=== PATIENT | male | born 1970 | race American Indian/Alaskan Native ===

== ENCOUNTER 2017-09-12 11:29 | Emergency (ER) | payer OTHER ==
--- NOTE | 2017-09-12 17:36 | Emergency Department Report ---
- General Chief Complaint: Upper Respiratory Infection Stated Complaint: FLU LIKE SYMPTOMS Source: patient Mode of arrival: Ambulatory Limitations: No Limitations - History of Present Illness Initial Comments: 47 y/o M presents with a productive cough, congestion, chills, body aches, sinus headache, and itchy/watery/ red eyes for the past 3-5 days. Pt states that this feels similar to how he usually feels when he is coming down with a cold. Pt has tried OTC Mucinex and eye drops for the symptoms at this time. 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 He denies any eye crusting/eye pain/hx of cataracts/glaucoma- no change in vision 20/25, no chest pain, SOB, nausea, or vomiting at this time. MD Complaint: cough, rhinorrhea, nasal congestion, sinus pain -: days(s) (3-5) Severity: moderate Severity scale (0 -10): 5 Consistency: constant Improves With: nothing Worsens With: nothing Associated Symptoms: fever, chills, myalgias, headache, rhinorrhea, nasal congestion, cough. denies: stiff neck, chest pain, shortness of breath, abdominal pain, nausea, vomiting, diarrhea, rash, confusion, right sweats, weight loss, epistaxis, hoarseness, ear pain - Related Data Previous Rx's Medication Instructions Recorded Last Taken Type Amoxicillin [Trimox CAP] 500 mg PO Q8H #30 capsule 10/15/14 Unknown Rx Gentamicin 0.3% Ophth Soln 2 drops OP QID #5 ml 10/15/14 Unknown Rx predniSONE [Deltasone] 20 mg PO TID #15 tab 10/15/14 Unknown Rx Amoxicillin/Potassium Clav 1 each PO BID #20 tablet 09/12/17 Unknown Rx [Augmentin 875-125 Tablet] Fluticasone [Flonase] 1 spray NS QDAY PRN #1 bottle 09/12/17 Unknown Rx predniSONE [Deltasone] 20 mg PO QDAY #5 tab 09/12/17 Unknown Rx Allergies Allergy/AdvReac Type Severity Reaction Status Date / Time No Known Allergies Allergy Unverified 10/15/14 12:56 ED Review of Systems ROS: Stated complaint: FLU LIKE SYMPTOMS Other details as noted in HPI Constitutional: chills, fever Eyes: other (reports to a red R eye, itching and watery). denies: eye pain, eye discharge, vision change ENT: congestion. denies: ear pain, throat pain Respiratory: cough. denies: shortness of breath, wheezing Cardiovascular: denies: chest pain, palpitations Gastrointestinal: denies: abdominal pain, nausea, diarrhea Genitourinary: denies: urgency, dysuria Musculoskeletal: denies: back pain, joint swelling, arthralgia Skin: denies: rash, lesions Neurological: denies: headache, weakness, paresthesias Psychiatric: denies: anxiety, depression Hematological/Lymphatic: denies: easy bleeding, easy bruising ED Past Medical Hx - Past Medical History Previous Medical History?: Yes Hx Hypertension: Yes - Surgical History Past Surgical History?: No - Social History Smoking Status: Current Every Day Smoker Substance Use Type: Alcohol, Marijuana, Prescribed - Medications Home Medications: Home Medications Medication Instructions Recorded Confirmed Last Taken Type Amoxicillin [Trimox CAP] 500 mg PO Q8H #30 capsule 10/15/14 Unknown Rx Gentamicin 0.3% Ophth Soln 2 drops OP QID #5 ml 10/15/14 Unknown Rx predniSONE [Deltasone] 20 mg PO TID #15 tab 10/15/14 Unknown Rx Amoxicillin/Potassium Clav 1 each PO BID #20 tablet 09/12/17 Unknown Rx [Augmentin 875-125 Tablet] Fluticasone [Flonase] 1 spray NS QDAY PRN #1 bottle 09/12/17 Unknown Rx predniSONE [Deltasone] 20 mg PO QDAY #5 tab 09/12/17 Unknown Rx ED Physical Exam - General Limitations: No Limitations General appearance: alert, in no apparent distress - Head Head exam: Present: normocephalic, other (TTP at the maxillary sinus region bilaterally) - Eye Eye exam: Present: PERRL, EOMI, other (there was no injection of the conjunctiva on examination today, unremarkable eye exam, visual acuity 20/25 R, L, and both together (no eye redness, swelling, oozing, draianage or crusting of the eye noted)). Absent: conjunctival injection, periorbital swelling, periorbital tenderness Pupils: Present: normal accommodation - ENT ENT exam: Present: other (PND noted at the posterior pharynx, b/l clear nasal congestion noted on examination, no pharnygitits or evidence of abscess) - Neck Neck exam: Present: full ROM, other (no signs of mengitis, able to flex and extend neckw ith no pain or difficulty) - Respiratory Respiratory exam: Present: normal lung sounds bilaterally. Absent: respiratory distress - Cardiovascular Cardiovascular Exam: Present: regular rate, normal rhythm. Absent: systolic murmur, diastolic murmur, rubs, gallop - GI/Abdominal GI/Abdominal exam: Present: soft, normal bowel sounds - Extremities Exam Extremities exam: Present: normal inspection - Back Exam Back exam: Present: normal inspection - Neurological Exam Neurological exam: Present: alert, oriented X3, CN II-XII intact, normal gait - Expanded Neurological Exam Expanded Patient oriented to: Present: person, place, time Speech: Present: fluid speech Cranial nerves: EOM's Intact: Normal Best Eye Response ([place]): (4) open spontaneously Best Motor Response ([place]): (6) obeys commands Best Verbal Response ([place]): (5) oriented Leah Total: 15 - Psychiatric Psychiatric exam: Present: normal affect, normal mood - Skin Skin exam: Present: warm, dry, intact, normal color. Absent: rash ED Course Vital Signs 09/12/17 09/12/17 11:43 17:43 Temperature 97.6 F 97.8 F Pulse Rate 75 89 Respiratory 20 18 Rate Blood Pressure 139/97 Blood Pressure 129/91 [Right] O2 Sat by Pulse 98 96 Oximetry ED Medical Decision Making - Radiology Data Radiology results: report reviewed CXR: Frontal and lateral views of the chest obtained. Cardiac silhouette is within normal limits. No focal consolidation or effusion. No pneumothorax. Visualized bony thorax is grossly intact. Impression: no focal consolidation. - Medical Decision Making Rapid strep and flu were negative. CXR-was unremarkable. Pt states that he feels similar to how he feels when he is coming down with a cold. I have treatment him with augmentin, flonase, and oral prednisone for 5 days. Pt denied fluroscien staining/goniometer pressure at this time. Hx seemed consistent with allergy related or a subconjunctival hemorrahge from excessive sneezing. The eye examination was unremarkable at this time, no redness of the eye was noted on examination today. Referral to Opthamology has been provided for patient today. Pt was alert and oriented throughout ED stay, laughing, in no acute respiratory distress, vitals stable at discharge. Critical care attestation.: If time is entered above; I have spent that time in minutes in the direct care of this critically ill patient, excluding procedure time. ED Disposition Clinical Impression: Sinusitis Qualifiers: Sinusitis location: maxillary Chronicity: acute Recurrence: recurrent Qualified Code(s): J01.01 - Acute recurrent maxillary sinusitis Disposition: TO HOME OR SELFCARE Is pt being admited?: No Does the pt Need Aspirin: No Condition: Stable Instructions: Prednisone (By mouth), Amoxicillin/Clavulanate Potassium (By mouth) Additional Instructions: Please complete your full course of antibiotic. Please avoid all anti- inflammatory medications (as motrin, advil, aleve) while on the prednisone. Please follow-up with PCP within 3-5 days. ENT referral provided for you today. Return to the ER immediately if your presenting conditions acutely progress or worsen. Prescriptions: Amoxicillin/Potassium Clav [Augmentin 875-125 Tablet] 1 each PO BID #20 tablet Fluticasone [Flonase] 1 spray NS QDAY PRN #1 bottle PRN Reason: Nasal Congestion predniSONE [Deltasone] 20 mg PO QDAY #5 tab [facility]: [facility] [Outside] - 3-5 Days [facility] [Outside] - 3-5 Days SVETLANA HICKMAN MD [Staff Physician] - 3-5 Days [facility], [Primary Care Provider] - 3-5 Days MARTÍN DUNHAM MD [Staff Physician] - 3-5 Days Forms: Work/School Release Form(ED)
[2017-09-12 17:44] VITALS: BP 129/91
--- NOTE | 2017-09-12 18:31 | XRay Report ---
FINAL REPORT EXAM: XR CHEST ROUTINE 2V HISTORY: productive cough COMPARISON: None available. FINDINGS:: Frontal and lateral views of the chest obtained. Cardiac silhouette is within normal limits. No focal consolidation or effusion. No pneumothorax. Visualized bony thorax is grossly intact. IMPRESSION:: No focal consolidation.
== END 2017-09-12 18:48 | disposition home or self-care (01) ==
LOC: ED 11:29
DX: J01.01 Acute recurrent maxillary sinusitis (principal); F17.200 Nicotine dependence, unspecified, uncomplicated; I10 Essential (primary) hypertension
CPT/HCPCS: 71046; 87116; 87400; 87430; 99283

== ENCOUNTER 2018-04-18 20:47 | Emergency (ER) | payer SELFPAY ==
[2018-04-18 21:37] LABS: Hematocrit 35.8 % (35.5-45.6); Hemoglobin 11.8 gm/dl (11.8-15.2); Mean Corpuscular HGB Conc 33 % (32-34); Mean Corpuscular Hemoglobin 29 pg (28-32); Mean Corpuscular Volume 87 fl (84-94); Platelet Count 271 K/mm3 (140-440); Red Blood Count 4.13 M/mm3 (3.65-5.03); Red Cell Distribution Width 14.4 % (13.2-15.2)
[2018-04-18 21:53] LABS: Bilirubin,Urine NEG (Negative); Blood,Urine NEG (Negative); Color,Urine Yellow (Yellow); Mucus,Urine 1+ /HPF; WBC,Urine < 1.0 /HPF (0.0-6.0)
[2018-04-18 21:54] LABS: Alanine Aminotransferase 41 units/L (7-56); Albumin 4.1 g/dL (3.9-5); BUN/Creatinine Ratio 12; Blood Urea Nitrogen 13 mg/dL (9-20); Calcium 8.7 mg/dL (8.4-10.2); Hemolysis Index 0
[2018-04-19] MEDS ORDERED: NACL 0.9% 1000 ML 1,000 ML IV ONE (01:19)
[2018-04-19] MEDS ORDERED: NORCO 10/325 PO ONE (01:35)
--- NOTE | 2018-04-19 01:38 | Emergency Department Report ---
ED General Adult HPI - General Chief complaint: Pain General Stated complaint: BILATERAL LEG/FOOT PAIN Time Seen by Provider: 04/19/18 01:17 Source: patient Mode of arrival: Ambulatory Limitations: No Limitations - History of Present Illness Initial comments: 47-year-old man complains of leg ache and backache, with symptoms present for approximately a week, with significant exacerbation today. 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 Discomfort has built up steadily, and is noticed over the past day or so that his urine has become steadily darker. He also has a headache, and is concerned about his blood pressure, and he has a history of hypertension, which she treats with amlodipine and hydrochlorothiazide, as well as clonidine. He denies any neck ache, any focal neurologic symptoms, no chest pain or shortness of breath, no abdominal pain, no nausea or vomiting. Offered and legs seems to be centered about both calves , and some discomfort in the posterior thighs, as well as buttock discomfort. Some aggravation with movement, discomfort is moderate, generally 6-7 out of 10 and aching mild throbbing. The throbbing, generalized, worse in the frontal area, not associated with any focal neurologic symptoms. Severity scale (0 -10): 7 - Related Data Previous Rx's Medication Instructions Recorded Last Taken Type Amoxicillin [Trimox CAP] 500 mg PO Q8H #30 capsule 10/15/14 Unknown Rx Gentamicin 0.3% Ophth Soln 2 drops OP QID #5 ml 10/15/14 Unknown Rx predniSONE [Deltasone] 20 mg PO TID #15 tab 10/15/14 Unknown Rx Amoxicillin/Potassium Clav 1 each PO BID #20 tablet 09/12/17 Unknown Rx [Augmentin 875-125 Tablet] Fluticasone [Flonase] 1 spray NS QDAY PRN #1 bottle 09/12/17 Unknown Rx predniSONE [Deltasone] 20 mg PO QDAY #5 tab 09/12/17 Unknown Rx HYDROcodone/ACETAMINOPHEN [[place] 1 each PO Q6H #20 tablet 04/19/18 Unknown Rx 5-325 Tablet] Allergies Allergy/AdvReac Type Severity Reaction Status Date / Time No Known Allergies Allergy Unverified 10/15/14 12:56 ED Review of Systems ROS: Stated complaint: BILATERAL LEG/FOOT PAIN Other details as noted in HPI Constitutional: chills, malaise, weakness. denies: fever Eyes: denies: vision change ENT: denies: throat pain Respiratory: denies: cough, shortness of breath, wheezing Cardiovascular: denies: chest pain, palpitations Endocrine: no symptoms reported Gastrointestinal: denies: abdominal pain, nausea, diarrhea Genitourinary: other (urine discolored past day). denies: urgency, dysuria Musculoskeletal: back pain, arthralgia, myalgia, other (chronic nodular cyst right proximal forearm). denies: joint swelling Neurological: headache. denies: weakness, numbness, paresthesias, confusion, vertigo Psychiatric: denies: anxiety, depression Hematological/Lymphatic: denies: easy bleeding, easy bruising ED Past Medical Hx - Past Medical History Hx Hypertension: Yes - Social History Smoking Status: Current Some Day Smoker Substance Use Type: None - Medications Home Medications: Home Medications Medication Instructions Recorded Confirmed Last Taken Type Amoxicillin [Trimox CAP] 500 mg PO Q8H #30 capsule 10/15/14 Unknown Rx Gentamicin 0.3% Ophth Soln 2 drops OP QID #5 ml 10/15/14 Unknown Rx predniSONE [Deltasone] 20 mg PO TID #15 tab 10/15/14 Unknown Rx Amoxicillin/Potassium Clav 1 each PO BID #20 tablet 09/12/17 Unknown Rx [Augmentin 875-125 Tablet] Fluticasone [Flonase] 1 spray NS QDAY PRN #1 bottle 09/12/17 Unknown Rx predniSONE [Deltasone] 20 mg PO QDAY #5 tab 09/12/17 Unknown Rx HYDROcodone/ACETAMINOPHEN [[place] 1 each PO Q6H #20 tablet 04/19/18 Unknown Rx 5-325 Tablet] ED Physical Exam - General Limitations: No Limitations General appearance: alert, in no apparent distress - Head Head exam: Present: atraumatic, normocephalic - Eye Eye exam: Present: PERRL, EOMI. Absent: scleral icterus - ENT ENT exam: Present: normal exam, mucous membranes moist - Neck Neck exam: Present: normal inspection. Absent: tenderness - Respiratory Respiratory exam: Present: normal lung sounds bilaterally - Cardiovascular Cardiovascular Exam: Present: regular rate, normal heart sounds - GI/Abdominal GI/Abdominal exam: Present: soft, normal bowel sounds. Absent: tenderness, guarding - Rectal Rectal exam: Present: deferred - Extremities Exam Extremities exam: Present: normal inspection, full ROM, tenderness (mild nonspecific, nonlocalized muscular aches on palpation directly, no edema or swelling, no tenseness). Absent: pedal edema, calf tenderness (no focal or specific calf tenderness out of proportion to other muscular aches) - Back Exam Back exam: Present: normal inspection, full ROM, tenderness (mild bilateral paraspinal tenderness, generally, along the lumbar and thoracic area, not particularly exacerbated by movement). Absent: muscle spasm, vertebral tenderness - Neurological Exam Neurological exam: Present: alert, oriented X3, CN II-XII intact, reflexes normal. Absent: motor sensory deficit - Psychiatric Psychiatric exam: Present: normal affect, normal mood - Skin Skin exam: Present: warm, dry, intact, normal color. Absent: erythema ED Course Vital Signs 04/18/18 04/19/18 04/19/18 20:52 00:24 00:25 Temperature 38.1 C H 37.7 C H Pulse Rate 102 H 95 H Respiratory 18 16 Rate Blood Pressure 180/105 175/87 Blood Pressure 175/87 [Left] O2 Sat by Pulse 97 95 96 Oximetry 04/19/18 04/19/18 04/19/18 00:30 01:00 01:30 Temperature Pulse Rate Respiratory Rate Blood Pressure 163/87 158/92 155/84 Blood Pressure [Left] O2 Sat by Pulse 95 93 91 Oximetry 04/19/18 04/19/18 04/19/18 01:40 02:00 02:20 Temperature 37.2 C Pulse Rate 74 Respiratory 16 16 Rate Blood Pressure 145/84 Blood Pressure 145/84 [Left] O2 Sat by Pulse 92 95 Oximetry 04/19/18 04/19/18 04/19/18 02:23 03:54 04:31 Temperature 36.9 C Pulse Rate 79 79 Respiratory 16 16 14 Rate Blood Pressure Blood Pressure 149/90 142/92 [Left] O2 Sat by Pulse 94 94 Oximetry - Reevaluation(s) Reevaluation #1: 04/19/18 05:27 Patient resting comfortably at time of recheck, informed of results of declining CK levels, declines any additional symptoms, still has mild muscular discomfort, and only concern is relief of discomfort. Agrees with plan to rest , will follow with physician, and he gets routine antihypertensive medication from a physician in [place]. Repeat BP 152/67. 04/19/18 05:33 ED Medical Decision Making - Lab Data Result diagrams: 04/18/18 21:10 04/18/18 21:10 - Medical Decision Making Patient has had an episode of heat exhaustion, with mild rhabdomyolysis, but is clinically stable, and CK levels although high, are not dangerously so, and repeat has climbed, and urinalysis is normal with no evidence of kidney injury. He is stable for discharge home, will be treated symptomatically, expressed emphasis on rehydration, avoidance of significant exertion, and recheck on 3 or 4 days by primary care physician before returning home. - Differential Diagnosis heat stroke, heat exhaustion, rhabdomyolysis Critical Care Time: No Critical care attestation.: If time is entered above; I have spent that time in minutes in the direct care of this critically ill patient, excluding procedure time. ED Disposition Clinical Impression: Exertional rhabdomyolysis Heat exhaustion Qualifiers: Encounter type: initial encounter Qualified Code(s): T67.5XXA - Heat exhaustion , unspecified, initial encounter Disposition: DC- TO HOME OR SELFCARE Is pt being admited?: No Does the pt Need Aspirin: No Condition: Stable Instructions: Rhabdomyolysis (ED), Heat Exhaustion (ED), Dehydration (ED) Additional Instructions: We are prescribing [place] for residual discomfort in the muscles as they are healing. He can take one tablet every 4-6 hours as needed for muscle soreness. Muscles will cover on their own, but you must avoid exertion until you have been pain-free for several days, and can move without causing discomfort. If you begin exerting yourself too soon, muscles can become sore again, damage can recur, which can cause serious kidney injury if it becomes worse. Drink plenty of fluids while you're recovering. He may eat normally, with no particular restrictions. Continue your blood Pressure medicines as before. Have recheck by your doctor in 3 or 4 days, to assess how you are recovering, before you plan to return to work. Rehydrate with electrolyte which fluids while you are back at work, which is exertional, and in the outdoors during the summer heat. It's also beneficial to take rests on a regular basis, and to cool down, either in an air- conditioned building, or apply cool cloths or baths. Return to emergency department for repeat examination if he have any recurrent symptoms. Prescriptions: HYDROcodone/ACETAMINOPHEN [[place] 5-325 Tablet] 1 each PO Q6H #20 tablet Referrals: PRIMARY CARE, [Primary Care Provider] - 3-5 Days Forms: Work/School Release Form(ED) Time of Disposition: 05:33
--- NOTE | 2018-04-19 02:16 | XRay Report ---
FINAL REPORT EXAM: XR CHEST 1V AP HISTORY: fever COMPARISON: September 12, 2017 FINDINGS: Frontal view(s) of the chest obtained. Stable borderline cardiac enlargement. No gross consolidation or effusion. No pneumothorax. IMPRESSION: No gross focal consolidation.
[2018-04-19 04:31] VITALS: BP 142/92
== END 2018-04-19 05:54 | disposition home or self-care (01) ==
LOC: ED 20:47
DX: T67.5XXA Heat exhaustion, unspecified, initial encounter (principal); M62.82 Rhabdomyolysis; I10 Essential (primary) hypertension; F17.200 Nicotine dependence, unspecified, uncomplicated; X30.XXXA Exposure to excessive natural heat, initial encounter; Y93.89 Activity, other specified; Y92.89 Other specified places as the place of occurrence of the external cause; Y99.8 Other external cause status
CPT/HCPCS: 36415; 71045; 80053; 81001; 82140; 82550; 82962; 83735; 85027; 99284; J7030; 96360

== ENCOUNTER 2018-10-09 18:22 | Emergency (ER) | payer SELFPAY ==
[2018-10-09 20:35] LABS: Bilirubin,Urine NEG (Negative); Blood,Urine LG (Negative); Color,Urine Yellow (Yellow); Mucus,Urine FEW /HPF; Protein,Urine <15 mg/dL mg/dL (Negative); Urobilinogen,Urine < 2.0 mg/dL (<2.0)
--- NOTE | 2018-10-09 21:56 | Emergency Department Report ---
ED Male HPI - General Chief complaint: Urogenital-Male Stated complaint: URINE TRACK BURNING Time Seen by Provider: 10/09/18 20:38 Source: patient Mode of arrival: Ambulatory Limitations: No Limitations - History of Present Illness Initial comments: This is a 48-year-old male here report burning with urination since Thursday on and off. He denies any penile discharge or bleeding. Denies any abdominal or back pain. Denies any fever or chills. No mention of STD concerns. MD Complaint: dysuria Onset/Timin -: days(s) Radiation: none Severity scale (0 -10): 0 (no pain today per patient) dysuria. denies: discharge, swelling, mass, rash, urinary retention, blood in urine, fever, nausea/vomiting, incontinence - Related Data Sexually active: Yes Previous Rx's Medication Instructions Recorded Last Taken Type Amoxicillin [Trimox CAP] 500 mg PO Q8H #30 capsule 10/15/14 Unknown Rx Gentamicin 0.3% Ophth Soln 2 drops OP QID #5 ml 10/15/14 Unknown Rx predniSONE [Deltasone] 20 mg PO TID #15 tab 10/15/14 Unknown Rx Amoxicillin/Potassium Clav 1 each PO BID #20 tablet 09/12/17 Unknown Rx [Augmentin 875-125 Tablet] Fluticasone [Flonase] 1 spray NS QDAY PRN #1 bottle 09/12/17 Unknown Rx predniSONE [Deltasone] 20 mg PO QDAY #5 tab 09/12/17 Unknown Rx HYDROcodone/ACETAMINOPHEN [[place] 1 each PO Q6H #20 tablet 04/19/18 Unknown Rx 5-325 Tablet] Cyclobenzaprine [Flexeril] 10 mg PO TID PRN #30 tablet 10/02/18 Unknown Rx Menthol/Camphor [[place] 1 applicatio TP QID PRN #1 tube 10/02/18 Unknown Rx Ointment] Naproxen 500 mg PO BID PRN #30 tablet 10/02/18 Unknown Rx Phenazopyridine [Pyridium] 100 mg PO TID PRN #9 tab 10/09/18 Unknown Rx Allergies Allergy/AdvReac Type Severity Reaction Status Date / Time No Known Allergies Allergy Verified 10/09/18 18:25 ED Review of Systems ROS: Stated complaint: URINE TRACK BURNING Other details as noted in HPI Constitutional: denies: chills, fever ENT: denies: throat pain Respiratory: denies: cough, shortness of breath, wheezing Cardiovascular: denies: chest pain, palpitations, edema, syncope Gastrointestinal: denies: abdominal pain, nausea, vomiting Genitourinary: dysuria. denies: frequency, hematuria, discharge, testicular pain, testicular mass Musculoskeletal: denies: back pain, joint swelling, arthralgia, myalgia Skin: denies: lesions Neurological: denies: headache, numbness, paresthesias, confusion, abnormal gait, vertigo ED Past Medical Hx - Past Medical History Previous Medical History?: Yes Hx Hypertension: Yes - Surgical History Past Surgical History?: No - Family History Family history: no significant - Social History Smoking Status: Current Every Day Smoker Substance Use Type: Alcohol - Medications Home Medications: Home Medications Medication Instructions Recorded Confirmed Last Taken Type Amoxicillin [Trimox CAP] 500 mg PO Q8H #30 capsule 10/15/14 Unknown Rx Gentamicin 0.3% Ophth Soln 2 drops OP QID #5 ml 10/15/14 Unknown Rx predniSONE [Deltasone] 20 mg PO TID #15 tab 10/15/14 Unknown Rx Amoxicillin/Potassium Clav 1 each PO BID #20 tablet 09/12/17 Unknown Rx [Augmentin 875-125 Tablet] Fluticasone [Flonase] 1 spray NS QDAY PRN #1 bottle 09/12/17 Unknown Rx predniSONE [Deltasone] 20 mg PO QDAY #5 tab 09/12/17 Unknown Rx HYDROcodone/ACETAMINOPHEN [[place] 1 each PO Q6H #20 tablet 04/19/18 Unknown Rx 5-325 Tablet] Cyclobenzaprine [Flexeril] 10 mg PO TID PRN #30 tablet 10/02/18 Unknown Rx Menthol/Camphor [[place] 1 applicatio TP QID PRN #1 tube 10/02/18 Unknown Rx Ointment] Naproxen 500 mg PO BID PRN #30 tablet 10/02/18 Unknown Rx Phenazopyridine [Pyridium] 100 mg PO TID PRN #9 tab 10/09/18 Unknown Rx ED Physical Exam - General Limitations: No Limitations General appearance: alert, in no apparent distress - Head Head exam: Present: atraumatic, normocephalic, normal inspection - Eye Eye exam: Present: normal appearance - ENT ENT exam: Present: normal exam, normal orophraynx - Neck Neck exam: Present: normal inspection, full ROM. Absent: tenderness, lymphadenopathy - Respiratory Respiratory exam: Present: normal lung sounds bilaterally. Absent: respiratory distress, chest wall tenderness - Cardiovascular Cardiovascular Exam: Present: regular rate, normal rhythm, normal heart sounds - GI/Abdominal GI/Abdominal exam: Present: soft, normal bowel sounds. Absent: distended, tenderness - Extremities Exam Extremities exam: Present: normal inspection, full ROM, normal capillary refill, other (No cce. + 2 pulses in all extremities, no neurovascular compromise). Absent: tenderness, pedal edema, joint swelling - Back Exam Back exam: Present: normal inspection, full ROM, other (ambulates without any difficulties). Absent: tenderness, CVA tenderness (R), CVA tenderness (L), rash noted - Neurological Exam Neurological exam: Present: alert, oriented X3, normal gait - Psychiatric Psychiatric exam: Present: normal affect, normal mood - Skin Skin exam: Present: warm, dry, intact, normal color. Absent: rash ED Course Vital Signs 10/09/18 18:25 Temperature 98.5 F Pulse Rate 82 Respiratory 97 H Rate Blood Pressure 152/96 - Reevaluation(s) Reevaluation #1: 10/09/18 22:02 Patient stable throughout ED course ED Medical Decision Making - Lab Data Lab Results 10/09/18 Range/Units Unknown Urine Color Yellow (Yellow) Urine Turbidity Clear (Clear) Urine pH 5.0 (5.0-7.0) Ur Specific [place] 1.020 (1.003-1.030) Urine Protein <15 mg/dl (Negative) mg/dL Urine Glucose (UA) Neg (Negative) mg/dL Urine Ketones Neg (Negative) mg/dL Urine Blood Lg (Negative) Urine Nitrite Neg (Negative) Urine Bilirubin Neg (Negative) Urine Urobilinogen < 2.0 (<2.0) mg/dL Ur Leukocyte Esterase Neg (Negative) Urine WBC (Auto) 1.0 (0.0-6.0) /HPF Urine RBC (Auto) 5.0 (0.0-6.0) /HPF U Epithel Cells (Auto) < 1.0 (0-13.0) /HPF Urine Mucus Few /HPF Urine culture sent - Medical Decision Making This is a 48-year-old male here concern for occasional urinary burning without any reports of penile discharge. Patient urinalysis shows large amount of blood otherwise normal. Urine culture sent. Patient states that he does not burn every day just occasionally. I discussed the patient's that his urinalysis shows that he has a large amount of blood and he will need to follow up with urologist for further investigation and if he is concerned for STD he needs to follow up with health department or his primary care doctor for STD testing and he voiced understanding. Discharged home in stable condition in no acute distress. Critical care attestation.: If time is entered above; I have spent that time in minutes in the direct care of this critically ill patient, excluding procedure time. ED Disposition Clinical Impression: Microscopic hematuria, Dysuria Disposition: - TO HOME OR SELFCARE Is pt being admited?: No Does the pt Need Aspirin: No Condition: Stable Instructions: Acute Hematuria (ED), Dysuria (ED) Additional Instructions: Your urine results shows that he have large amount of blood and urine that cannot be seen by visualizing urine. He will need to follow up with a urologist for further investigation.0 Please increase her fluid intake He will need to go to your primary care doctor or the health department if you have concern for STD. Practice safe sex Prescriptions: Phenazopyridine [Pyridium] 100 mg PO TID PRN #9 tab PRN Reason: urinary burning Referrals: [facility] [Outside] - 2-3 Days SULEIMAN CONKLIN MD [Primary Care Provider] - 2-3 Days [facility] [Provider Group] - 2-3 Days Forms: Accompanied Note, Work/School Release Form(ED)
[2018-10-10 14:32] VITALS: BP 136/76
== END 2018-10-09 22:15 | disposition home or self-care (01) ==
LOC: ED 18:22
DX: R31.9 Hematuria, unspecified (principal); R30.0 Dysuria; I10 Essential (primary) hypertension; F17.200 Nicotine dependence, unspecified, uncomplicated
CPT/HCPCS: 81001; 87086; 99283